=== PATIENT | female | born 1965 | race Caucasian/White ===

== ENCOUNTER 2017-03-25 02:55 | Emergency (ER) | payer OTHER ==
--- NOTE | 2017-03-25 02:57 | PDOC ---
History of Present Illness - General Chief Complaint: Pain, Acute Stated Complaint: ABDOMINAL PAIN Time Seen by Provider: 03/25/17 02:57 - History of Present Illness Initial Comments: 03/25/17 03:17 This 51-year-old woman with a history of overactive bladder but no other significant past medical issues presents with few hours history of nausea/ vomiting/diarrhea accompanied by abdominal discomfort. Patient ate dinner of vegetables at approximately 5:30 p.m. this evening. Approximately 3 hours later , she had the onset of nausea and mid abdominal discomfort. She subsequently had 2 episodes of vomiting (11 PM/12 midnight). Vomitus was yellowish material without coffee grounds/blood. Around the same time, she also had 2 episodes of loose stool (no blood/mucus ). No fever noted although the patient feels chilly. No known sick contacts. No recent travel. Patient states that she has a susceptibility to "stomach flu" and food poisoning. No history of peptic ulcer disease/GERD/gastritis. No history of gallbladder or pancreatic abnormalities. Past History - Past Medical History Allergies/Adverse Reactions: Allergies Allergy/AdvReac Type Severity Reaction Status Date / Time No Known Allergies Allergy Verified 03/25/17 02:56 Home Medications: Ambulatory Orders Ondansetron [Zofran Odt -] 4 mg SL TID PRN #10 od.tablet 03/25/17 Anemia: No Asthma: No Cancer: No Cardiac Disorders: No CVA: No COPD: No CHF: No Dementia: No Diabetes: No GI Disorders: No Disorders: No HTN: No Hypercholesterolemia: No Liver Disease: No Seizures: No Thyroid Disease: No - Surgical History Abdominal Surgery: Yes (TUBAL LIGATION) Appendectomy: No Cardiac Surgery: No Cholecystectomy: No Lung Surgery: No Neurologic Surgery: No Orthopedic Surgery: No - Suicide/Smoking/Psychosocial Hx Smoking History: Never smoked Have you smoked in the past 12 months: No Hx Alcohol Use: No Drug/Substance Use Hx: No Substance Use Type: None Hx Substance Use Treatment: No Review of Systems - Review of Systems Able to Perform ROS?: Yes Comments:: 12 point review of systems is negative except for what is noted in the history of present illness *Physical Exam - Physical Exam Comments: GENERAL: Adult female, alert and oriented 3, in mild distress secondary to abdominal discomfort/nausea HEAD: Normal with no signs of trauma. EYES: PERRLA, EOMI, sclera anicteric, conjunctiva clear. ENT: Ears normal, nares patent, oropharynx clear without exudates. Dry mucous membranes. NECK: Normal range of motion, supple without lymphadenopathy, JVD, or masses. LUNGS: Breath sounds equal, clear to auscultation bilaterally. No wheezes, and no crackles. HEART:Regular rate and rhythm, normal S1 and S2 without murmur, rub or gallop. ABDOMEN:.Hyperactive bowel sounds. Mild generalized tenderness, especially in mid abdominal. No guarding or rebound.No masses No distention. EXTREMITIES: Normal range of motion, no edema. No clubbing or cyanosis. No erythema, or tenderness. NEUROLOGICAL: Cranial nerves II through XII grossly intact. Normal speech. No focal neurological deficits. MUSCULOSKELETAL: Back non-tender to palpation, no CVA tenderness SKIN: Warm, Dry, normal turgor, no rashes or lesions noted. Progress Note - Progress Note Progress Note: Patient received 4 mg Zofran ODT with some improvement in her nausea. However, she continued to have abdominal cramping. Because patient appeared to be clinically dehydrated and has had fluid losses in vomitus/diarrhea, liter of normal saline was given. 30 mg Toradol IV given. Patient felt markedly improved after 1 L normal saline IV hydration and 30 mg Toradol IV. Patient will be discharged with instructions to maintain clear liquid diet and advance diet cautiously. She should not begin full diet for at least 2 days. Prescription for Zofran 4 mg ODT (#10) to be used as needed for nausea to 3 times a day was transmitted to her pharmacy. Patient should also consider using Imodium if diarrhea persists. She should return to the emergency room if she has persistent vomiting or develops severe abdominal pain/fever *DC/Admit/Observation/Transfer Diagnosis at time of Disposition: Acute gastroenteritis - Discharge Dispostion Disposition: HOME Condition at time of disposition: Stable - Prescriptions Prescriptions: Ondansetron [Zofran Odt -] 4 mg SL TID PRN #10 od.tablet PRN Reason: Nausea - Referrals - Patient Instructions Printed Discharge Instructions: DI for Viral Gastroenteritis -- Adult Additional Instructions: Clear liquids; advance diet cautiously Zofran 4 mg ODT as needed for nausea Imodium as needed for loose stools Follow-up with your general doctor within the next 2-3 days Return to ER if you have persistent vomiting , severe pain or high fever Print Language: PARAGUAYAN - Post Discharge Activity
[2017-03-25 03:02] VITALS: BP 122/72; PULSE 83; TEMP 98.1; BMI 24.7
[2017-03-25] MEDS ORDERED: ONDANSETRON *ODT* 4 MG TABLET SL ONE (03:14)
[2017-03-25] MEDS ORDERED: ONDANSETRON *ODT* 4 MG TABLET ONE (03:15)
[2017-03-25] MEDS ORDERED: LOPERAMIDE HCL 2 MG CAPSULE PO ONE (03:30)
[2017-03-25] MEDS ORDERED: LOPERAMIDE HCL 2 MG CAPSULE ONE (03:31)
[2017-03-25] MEDS ORDERED: KETOROLAC TROMETHAMINE 30 MG/1 ML VIAL IVPUSH ONE (03:33)
[2017-03-25] MEDS ORDERED: SODIUM CHLORIDE 1,000 ML IV STA (03:33)
[2017-03-25] MEDS ORDERED: KETOROLAC TROMETHAMINE 30 MG/1 ML VIAL ONE (03:39)
== END 2017-03-25 04:19 | disposition home or self-care (01) ==
LOC: FER 02:55
PROC: 3E0333Z Introduction of Anti-inflammatory into Peripheral Vein, Percutaneous Approach (ICD-10-PCS; principal; 2017-03-25)
PROC: 3E0337Z Introduction of Electrolytic and Water Balance Substance into Peripheral Vein, Percutaneous Approach (ICD-10-PCS; 2017-03-25)
DX: K52.9 Noninfective gastroenteritis and colitis, unspecified (principal)
CPT/HCPCS: 99281-25

== ENCOUNTER 2019-06-19 14:01 | Emergency (ER) | payer OTHER ==
--- NOTE | 2019-06-19 14:33 | PDOC ---
History of Present Illness - General Chief Complaint: Urinary Problem Stated Complaint: UTI History Source: Patient Exam Limitations: No Limitations - History of Present Illness Initial Comments: 06/19/19 14:31 53-year-old female no past medical history here today complaining of dysuria and urgency. Patient states symptoms started a few days ago has had an episode in the past over 1 year ago currently denies any fevers or chills no flank pain no nausea no vomiting states she had a burning sensation is a somewhat better this evening however it was worse in the a.m. denies any hematuria Past History - Past Medical History Allergies/Adverse Reactions: Allergies Allergy/AdvReac Type Severity Reaction Status Date / Time No Known Allergies Allergy Verified 06/19/19 14:01 Home Medications: Ambulatory Orders Cephalexin [Keflex] 500 mg PO TID #21 capsule 06/19/19 Mirabegron [Myrbetriq] 25 mg PO HS 06/19/19 Anemia: No Asthma: No Cancer: No Cardiac Disorders: No CVA: No COPD: No CHF: No Dementia: No Diabetes: No GI Disorders: No Disorders: No HTN: No Hypercholesterolemia: No Liver Disease: No Seizures: No Thyroid Disease: No - Surgical History Abdominal Surgery: Yes (TUBAL LIGATION) Appendectomy: No Cardiac Surgery: No Cholecystectomy: No Lung Surgery: No Neurologic Surgery: No Orthopedic Surgery: No - Psycho Social/Smoking Cessation Hx Smoking History: Never smoked Have you smoked in the past 12 months: No Hx Alcohol Use: No Drug/Substance Use Hx: No Substance Use Type: None Hx Substance Use Treatment: No Review of Systems - Review of Systems Constitutional: No: Chills, Fever Respiratory: No: Cough Cardiac (ROS): No: Chest Pain : Yes: Burning, Dysuria. No: Hematuria Musculoskeletal: No: Back Pain Neurological: No: Headache All Other Systems: Reviewed and Negative *Physical Exam - Physical Exam 06/19/19 14:32 Awake alert no acute distress lungs are clear bilaterally heart is regular 30 murmurs rubs or gallops abdomen is soft there is mild suprapubic tenderness no rebound no guarding no CVA tenderness remedies are warm well perfused patient is awake alert and oriented x3 skin is warm and dry no rash Medical Decision Making - Medical Decision Making 06/19/19 14:33 53-year-old female history of prior UTIs here today complaining of dysuria likely UTI plan UA urine culture will likely treat based on patient's symptoms outpatient follow-up Discharge - Discharge Information Problems reviewed: Yes Clinical Impression/Diagnosis: UTI (urinary tract infection) Condition: Good Disposition: HOME - Admission No - Additional Discharge Information Prescriptions: Cephalexin [Keflex] 500 mg PO TID #21 capsule - Follow up/Referral Referrals: Gonzales Whitlock MD [Staff Physician] - - Patient Discharge Instructions Patient Printed Discharge Instructions: Urinary Tract Infection Additional Instructions: Your urine is positive for infection. You should take Keflex 500 mg 3 times a day for 1 week. You should also follow-up with urologist See referral for Dr. Villalobos, as you do have a little bit of blood in your urine this is likely due to infection however it should be followed to be sure that it clears when the infection is treated. Return for any fevers chills vomiting or any concerns. You should also follow-up with your primary care doctor call to thien green an appointment - Post Discharge Activity
[2019-06-19 14:35] VITALS: BP 121/63; PULSE 77; TEMP 98.2; BMI 24.7
[2019-06-19 14:58] LABS: EPITHELIAL CELLS FEW /hpf
[2019-06-19] MEDS ORDERED: CEPHALEXIN MONOHYDRATE 500 MG CAPSULE (UD) PO ONE (15:07)
[2019-06-19] MEDS ORDERED: CEPHALEXIN MONOHYDRATE 500 MG CAPSULE (UD) ONE (15:26)
== END 2019-06-19 15:32 | disposition home or self-care (01) ==
LOC: FER 14:01
DX: N39.0 Urinary tract infection, site not specified (principal)
CPT/HCPCS: 81003; 81015; 87086; 87186; 99283-25

== ENCOUNTER 2019-10-15 09:50 | Emergency (ER) | payer OTHER ==
[2019-10-15 10:04] VITALS: BP 113/67; PULSE 98; BMI 25.8
[2019-10-15] MEDS ORDERED: ACETAMINOPHEN 1000 MG/100 ML VIAL (NON FORMULARY) IVPB ONE (10:15)
[2019-10-15] MEDS ORDERED: SODIUM CHLORIDE 0.9% 1000 ML INFUS.BAG IV ONE (10:15)
[2019-10-15] MEDS ORDERED: ACETAMINOPHEN INJECTION 100 ML IVPB ONE (10:24)
--- NOTE | 2019-10-15 10:40 | PDOC ---
History of Present Illness - General Chief Complaint: Weakness Stated Complaint: WEAK, "HEAD PRESSURE", JOINT PAINS Time Seen by Provider: 10/15/19 09:53 History Source: Patient Exam Limitations: No Limitations - History of Present Illness Initial Comments: 10/15/19 10:36 53-year-old female history of polyarthritis of uncertain etiology is followed by line up examiner here today complaining of generalized body aches. Patient states she has had off-and-on body aches however over the last few days she is noticed whole body aches in her muscles thighs back is also complaining of a headache. Did have some loose watery stool in the last few days denies any nausea or vomiting no fevers no chills no head trauma has been taking Celebrex twice daily for her symptoms. She also noticed a rash in her stomach for which she was started on antifungal cream for ringworm by her PCP. Denies any sick contacts no fevers no chills no cough no shortness of breath no urinary complaints overall headache is improved but her body aches have persisted Past History - Medical History Allergies/Adverse Reactions: Allergies Allergy/AdvReac Type Severity Reaction Status Date / Time No Known Allergies Allergy Verified 10/15/19 09:52 Home Medications: Ambulatory Orders Mirabegron [Myrbetriq] 25 mg PO HS 06/19/19 Celecoxib 200 mg PO BID 10/15/19 Clotrimazole/Betamethasone Dip [Clotrimazole-Betamethasone Crm] 1 applic TP BID 10/15/19 Anemia: No Asthma: No Cancer: No Cardiac Disorders: No CVA: No COPD: No CHF: No Dementia: No Diabetes: No GI Disorders: No Disorders: Yes (overactive bladder) HTN: No Hypercholesterolemia: No Liver Disease: No Seizures: No Thyroid Disease: No - Surgical History Abdominal Surgery: Yes (TUBAL LIGATION) Appendectomy: No Cardiac Surgery: No Cholecystectomy: No Lung Surgery: No Neurologic Surgery: No Orthopedic Surgery: No - Immunization History Td Vaccination: No - Psycho-Social/Smoking History Smoking History: Never smoked Have you smoked in the past 12 months: No Information on smoking cessation initiated: No - Substance Abuse Hx (Audit-C & DAST Scrn) How often the patient has a drink containing alcohol: Never Score: In Men: 4 or > Positive; In Women: 3 or > Positive: 0 Screen Result (Pos requires Nsg. Audit-10AR): Negative In the last yr the pt used illegal drug/Rx for NonMed reason: No Score: Yes response is considered Positive: 0 Screen Result (Positive result requires Nsg. DAST-10): Negative Review of Systems - Review of Systems Constitutional: No: Chills, Fever HEENTM: No: Eye Pain Respiratory: No: Cough, Shortness of Breath Cardiac (ROS): No: Chest Pain ABD/GI: Yes: Diarrhea, Poor Appetite. No: Nausea : No: Burning, Dysuria, Discharge Musculoskeletal: Yes: Joint Pain, Muscle Pain, Muscle Weakness Integumentary: Yes: Rash Neurological: Yes: Headache. No: Numbness, Paresthesia, Tremors, Weakness All Other Systems: Reviewed and Negative *Physical Exam - Vital Signs Last Vital Signs Temp Pulse Resp BP Pulse Ox 99.9 F H 98 H 18 113/67 98 10/15/19 09:50 10/15/19 09:50 10/15/19 09:50 10/15/19 09:50 10/15/19 09:50 - Physical Exam 10/15/19 10:37 Awake alert no acute distress lungs are clear bilaterally heart is regular with no murmurs rubs or gallops abdomen soft nontender skin is warm and dry there is noted to be a small circular scaly rash with hyperpigmentation on the left mid abdomen approximately 2 x 2 inches in size no other lesions or rashes noted. Extremities are warm and well-perfused neurologically patient is awake alert and oriented x3 ED Treatment Course - LABORATORY CBC & Chemistry Diagram: 10/15/19 10:30 10/15/19 10:30 - Medications Given in the ED: ED Medications Discontinued Medications Generic Name Dose Route Start Last Admin Trade Name Freq PRN Reason Stop Dose Admin Acetaminophen 1,000 mg 10/15/19 10:15 10/15/19 10:30 Ofirmev Injection - IVPB 10/15/19 10:16 1,000 mg ONCE ONE Administration Sodium Chloride 1,000 ml 10/15/19 10:15 10/15/19 10:30 Normal Saline - IV 10/15/19 10:16 1,000 ml ONCE ONE Administration Medical Decision Making - Medical Decision Making 10/15/19 10:38 53-year-old female with unknown arthritis here today with general myalgias headaches which has resolved and fatigue. Differential includes myositis or rhabdo of uncertain etiology anemia electrolyte abnormality hypercalcemia or hypokalemia possible underlying autoimmune inflammatory disorder and COVID considered plan COVID swab IV fluids Tylenol and basic labs including total CK patient will likely be discharged home if labs are unremarkable with symptomatic treatment follow-up with her line up examiner 10/15/19 11:48 pt feels improved. labs normal. will dc home told to fu with line up examiner Discharge - Discharge Information Problems reviewed: Yes Clinical Impression/Diagnosis: Myalgia Condition: Stable Disposition: HOME - Admission No - Follow up/Referral Referrals: Patrick Turner MD [Primary Care Provider] - - Patient Discharge Instructions Patient Printed Discharge Instructions: [facility]Coronavirus Instructions, [facility] COVID-19 Isolation Protocol, Tension Headache Additional Instructions: you should follow up with your primary care doctor and your line up examiner. call to schedule. you labs today are normal. you were given tylenol for your pain. be sure to drink plenty of fluids, get plenty of rest. you can take tylenol 500 mg every 6 hrs as needed for your pain. return for any problems or concerns. your covid test was sent, should return in 48 hours. you will be called if it is positive. - Post Discharge Activity
[2019-10-15 10:44] LABS: BASO % 0.6 % (0-2.0); EOS % 0.9 % (0-4.5)
[2019-10-15 10:50] LABS: HEMATOCRIT 34.5 % (32.4-45.2); HEMOGLOBIN 11.5 GM/dl (10.7-15.3); LYMPH % 8.2 % (8-40); MCHC 33.2 g/dl (32.0-36.0); MEAN CELL VOLUME 87.4 fl (80-96); MEAN PLT VOLUME 7.8 fl (7.5-11.1); MONO % 5.7 % (3.8-10.2); NEUT % 84.6 % (42.8-82.8); PLATELET COUNT 245 K/MM3 (134-434); RBC 3.95 M/mm3 (3.60-5.2); WHITE BLOOD COUNT 8.5 K/mm3 (4.0-10.8)
[2019-10-15 10:51] LABS: ALBUMIN 3.4 g/dl (3.4-5.0); BILIRUBIN,TOTAL 0.7 mg/dl (0.2-1); CALCIUM 8.4 mg/dl (8.5-10); CREATININE 0.7 mg/dl (0.55-1.3); POTASSIUM 4.2 mmol/L (3.5-5.1); TOT PROT 6.4 g/dl (6.4-8.2)
[2019-10-15 12:03] VITALS: TEMP 98.6
== END 2019-10-15 12:00 | disposition home or self-care (01) ==
LOC: FER 09:50
PROC: 3E033GC Introduction of Other Therapeutic Substance into Peripheral Vein, Percutaneous Approach (ICD-10-PCS; principal; 2019-10-15)
DX: M79.10 Myalgia, unspecified site (principal)
CPT/HCPCS: 36415; 80053; 82550; 85025; 99284-25; J0131; U0003

== ENCOUNTER 2021-10-10 04:15 | Day surgery (SDC) | payer OTHER ==
[2021-10-04 16:05] VITALS: BMI 25.3
[2021-10-10] MEDS ORDERED: LIDOCAINE HCL 2% 100 MG/5 ML DISP.SYRIN ONE (08:56)
[2021-10-10] MEDS ORDERED: DEXAMETHASONE SOD PHOSPHATE 4 MG/1 ML VIAL ONE (08:56)
[2021-10-10] MEDS ORDERED: KETOROLAC TROMETHAMINE 30 MG/1 ML VIAL ONE (08:56)
[2021-10-10] MEDS ORDERED: ONDANSETRON 4 MG/2 ML VIAL ONE (08:56)
[2021-10-10] MEDS ORDERED: PROPOFOL 20 ML ONE ×3 (08:57→09:27)
[2021-10-10] MEDS ORDERED: MIDAZOLAM HCL 2 MG/2 ML SINGLE DOSE VIAL ONE (08:58)
[2021-10-10 09:09] LABS: EPI CELLS 6 /uL (0-25.1); HYALINE CASTS 2 /uL (0-3.1); PH,URINE 5.5 (5.0-8.0); URINE APPEARANCE CLOUDY; URINE BACTERIA >9,000 /uL (0-1359); URINE BILIRUBIN NEGATIVE (NEGATIVE); URINE COLOR YELLOW; URINE GLUCOSE (UA) NEGATIVE (NEGATIVE); URINE KETONE NEGATIVE (NEGATIVE); URINE LEUK ESTERASE 1+ (NEGATIVE); URINE NITRITE POSITIVE (NEGATIVE); URINE PROTEIN NEGATIVE (NEGATIVE); URINE RBC 24 /uL (0-23.9); URINE UROBILINOGEN 0.2 mg/dL (0.2-1.0); URINE WBC 154 /uL (0-25.8)
[2021-10-10 09:09] LABS: INR 0.93 (0.83-1.09); PROTHROMBIN TIME (PATIENT) 10.7 SEC (9.7-13.0)
[2021-10-10 09:12] LABS: ACTIVATED PTT 33.2 SECONDS (25.2-36.5)
[2021-10-10] MEDS ORDERED: LIDOCAINE HCL 1%, 10 MG/ML (20ML VIAL) ONE (09:14)
[2021-10-10] MEDS ORDERED: ceFAZolin SODIUM 1 GM VIAL ONE ×2 (09:33)
[2021-10-10] MEDS ORDERED: ceFAZolin SODIUM 1 GM VIAL IVPB ONE (09:40)
[2021-10-10] MEDS ORDERED: LIDOCAINE HCL 1%, 10 MG/ML (20ML VIAL) INF ONE ×2 (09:48)
[2021-10-10] MEDS ORDERED: BUPIVACAINE HCL/PF 0.5% (5MG/ML) 10 ML VIAL IJ ONE ×2 (09:48)
[2021-10-10] MEDS ORDERED: ONDANSETRON 4 MG/2 ML VIAL IVPUSH PRN (10:26)
[2021-10-10] MEDS ORDERED: oxyCODONE HCL 5 MG TABLET PO PRN ×2 (10:26)
[2021-10-10] MEDS ORDERED: PROMETHAZINE HCL 25 MG/1 ML VIAL IVPUSH PRN (10:26)
[2021-10-10] MEDS ORDERED: ACETAMINOPHEN 325 MG TABLET (FP) PO PRN (10:26)
[2021-10-10] MEDS ORDERED: LACTATED RINGERS SOLUTION 1,000 ML IV SCH (10:30)
[2021-10-10 13:12] VITALS: BP 120/70; PULSE 72; TEMP 98
== END 2021-10-10 12:50 | disposition home or self-care (01) ==
LOC: JASU-SURG 04:15
PROVIDERS: ATTEND Orthopaedic Surgery
PROC: 0LB50ZZ Excision of Right Lower Arm and Wrist Tendon, Open Approach (ICD-10-PCS; 2021-10-10)
PROC: 0LB50ZZ Excision of Right Lower Arm and Wrist Tendon, Open Approach (ICD-10-PCS; 2021-10-10)
PROC: 0LB50ZZ Excision of Right Lower Arm and Wrist Tendon, Open Approach (ICD-10-PCS; 2021-10-10)
PROC: 0LB50ZZ Excision of Right Lower Arm and Wrist Tendon, Open Approach (ICD-10-PCS; 2021-10-10)
PROC: 0LB50ZZ Excision of Right Lower Arm and Wrist Tendon, Open Approach (ICD-10-PCS; 2021-10-10)
PROC: 0LB50ZZ Excision of Right Lower Arm and Wrist Tendon, Open Approach (ICD-10-PCS; 2021-10-10)
PROC: 0LB50ZZ Excision of Right Lower Arm and Wrist Tendon, Open Approach (ICD-10-PCS; 2021-10-10)
PROC: 0LB50ZZ Excision of Right Lower Arm and Wrist Tendon, Open Approach (ICD-10-PCS; 2021-10-10)
PROC: 0JBJ0ZZ Excision of Right Hand Subcutaneous Tissue and Fascia, Open Approach (ICD-10-PCS; 2021-10-10)
PROC: 01N50ZZ Release Median Nerve, Open Approach (ICD-10-PCS; principal; 2021-10-10 10:15)
PROC: 0LB50ZZ Excision of Right Lower Arm and Wrist Tendon, Open Approach (ICD-10-PCS; 2021-10-10 10:15)
DX: G56.01 Carpal tunnel syndrome, right upper limb (principal); D17.21 Benign lipomatous neoplasm of skin and subcutaneous tissue of right arm; M65.831 Other synovitis and tenosynovitis, right forearm
CPT/HCPCS: 36415; 81003; 85610; 85730; 88304-TC; 88305-TC

== ENCOUNTER 2023-05-12 04:39 | Day surgery (SDC) | payer OTHER ==
[2023-05-08 08:33] VITALS: BMI 25.1
[2023-05-12] MEDS ORDERED: MIDAZOLAM HCL 2 MG/2 ML SINGLE DOSE VIAL ONE (07:48)
[2023-05-12] MEDS ORDERED: PROPOFOL 20 ML ONE (07:51)
[2023-05-12] MEDS ORDERED: SUCCINYLCHOLINE CHLORIDE 200 MG/10 ML SYRINGE ONE (07:51)
[2023-05-12] MEDS ORDERED: ceFAZolin SODIUM 1 GM VIAL IVPB ONE (07:54)
[2023-05-12] MEDS ORDERED: ONABOTULINUMTOXINA 200 UNIT/VIAL VIAL IM ONE (08:05)
[2023-05-12 10:41] VITALS: TEMP 98.5
[2023-05-12 10:44] VITALS: BP 128/78; PULSE 68; RESP 20
[2023-05-12] MEDS ORDERED: LIDOCAINE 1%/EPI 1:100000 (20 ML MULTI DOSE VIAL) ONE (11:27)
== END 2023-05-12 10:42 | disposition home or self-care (01) ==
LOC: JASU-SURG 04:39
PROVIDERS: ATTEND Urology
PROC: 3E0K8GC Introduction of Other Therapeutic Substance into Genitourinary Tract, Via Natural or Artificial Opening Endoscopic (ICD-10-PCS; principal; 2023-05-12 08:00)
DX: N31.9 Neuromuscular dysfunction of bladder, unspecified (principal); N31.8 Other neuromuscular dysfunction of bladder
CPT/HCPCS: J0585

== ENCOUNTER 2024-07-10 19:09 | Inpatient (IN) | payer OTHER ==
[2024-07-10] MEDS ORDERED: FAMOTIDINE 20 MG/50 ML IVPB 20 MG/50 ML MG IVPB ONE (19:39)
[2024-07-10] MEDS ORDERED: ACETAMINOPHEN INJECTION 100 ML ONE (19:40)
[2024-07-10] MEDS ORDERED: MAG HYDROX/AL HYDROX/SIMETH 30 ML UNIT-DOSE CUP ONE (19:40)
[2024-07-10] MEDS: LACTATED RINGERS SOLUTION 1000 ML INFUS.BAG IV ONE (19:50)
[2024-07-10] MEDS: FAMOTIDINE 20 MG/50 ML IVPB 20 MG/50 ML MG IVPB ONE (19:55)
[2024-07-10] MEDS: MAG HYDROX/AL HYDROX/SIMETH 30 ML UNIT-DOSE CUP PO ONE (20:00)
[2024-07-10] MEDS: ACETAMINOPHEN 1000 MG/100 ML BAG IVPB ONE (20:05)
[2024-07-10 20:06] LABS: ABSOLUTE IMMATURE GRANULOCYTES 0.03 x10^3/uL (0.0-0.031); BASOPHILS # 0.05 x10^3/uL (0.01-0.08); EOSINOPHIL % 2.5 % (0.7-5.8); EOSINOPHILS # 0.37 x10^3/uL (0.04-0.36); HEMATOCRIT 42.4 % (34.1-44.9); HEMOGLOBIN 14.1 g/dL (11.2-15.7); MCHC 33.3 g/dl (32.2-35.5); MEAN CELL VOLUME 92.2 fl (79.4-94.8); MEAN PLT VOLUME 9.6 fl (9.4-12.3); MONOCYTE # 0.53 x10^3/uL (0.24-0.86); MONOCYTE % 3.6 % (4.7-12.5); PLATELET COUNT 285 x10^3/uL (182-369); RDW 12.5 % (12.3-16.6)
[2024-07-10 20:29] LABS: ALBUMIN 4.6 g/dl (3.4-5.0); BILIRUBIN,TOTAL 0.3 mg/dl (0.2-1); CALCIUM 10.2 mg/dl (8.5-10.1); CREATININE 0.9 mg/dl (0.6-1.3); MAGNESIUM 2.3 mg/dL (1.8-2.4); POTASSIUM 3.9 mmol/L (3.5-5.1); TOT PROT 7.5 g/dl (6.4-8.2)
[2024-07-10] MEDS ORDERED: morphine SULFATE 4 MG/ML VIAL ONE (21:51)
[2024-07-10] MEDS: morphine CARPU-JECT 4 MG/1 ML DISP.SYRIN IVPUSH ONE (21:59)
[2024-07-10 22:10] LABS: EPITHELIAL CELLS 0-5 /hpf
[2024-07-11] MEDS: DEXTROSE 5%-NORMAL SALINE 1,000 ML IV SCH (00:46)
[2024-07-11] MEDS: ACETAMINOPHEN 1000 MG/100 ML BAG IVPB PRN (06:39)
[2024-07-11 07:38] VITALS: BMI 27.3
[2024-07-11 08:22] LABS: ABSOLUTE IMMATURE GRANULOCYTES 0.03 x10^3/uL (0.0-0.031); BASOPHILS # 0.07 x10^3/uL (0.01-0.08); EOSINOPHIL % 4.4 % (0.7-5.8); EOSINOPHILS # 0.35 x10^3/uL (0.04-0.36); HEMATOCRIT 38.5 % (34.1-44.9); HEMOGLOBIN 12.4 g/dL (11.2-15.7); MCHC 32.2 g/dl (32.2-35.5); MEAN CELL VOLUME 91.4 fl (79.4-94.8); MEAN PLT VOLUME 9.9 fl (9.4-12.3); MONOCYTE # 0.44 x10^3/uL (0.24-0.86); MONOCYTE % 5.5 % (4.7-12.5); PLATELET COUNT 271 x10^3/uL (182-369); RDW 12.8 % (12.3-16.6)
[2024-07-11 08:36] LABS: POTASSIUM 4.5 mmol/L (3.5-5.1)
[2024-07-11 08:51] LABS: BLOOD UREA NITROGEN 15.4 mg/dL (7-18); CALCIUM 8.9 mg/dL (8.5-10.1); CREATININE 0.6 mg/dL (0.55-1.3)
[2024-07-11] MEDS: PANTOPRAZOLE SODIUM 40 MG VIAL IVPUSH SCH (10:51)
[2024-07-11 20:51] VITALS: RESP 18
[2024-07-12 08:09] LABS: ABSOLUTE IMMATURE GRANULOCYTES 0.02 x10^3/uL (0.0-0.031); BASOPHILS # 0.04 x10^3/uL (0.01-0.08); EOSINOPHIL % 5.8 % (0.7-5.8); EOSINOPHILS # 0.34 x10^3/uL (0.04-0.36); HEMATOCRIT 40.6 % (34.1-44.9); HEMOGLOBIN 13.2 g/dL (11.2-15.7); MCHC 32.5 g/dl (32.2-35.5); MEAN CELL VOLUME 92.1 fl (79.4-94.8); MEAN PLT VOLUME 9.4 fl (9.4-12.3); MONOCYTE # 0.31 x10^3/uL (0.24-0.86); MONOCYTE % 5.3 % (4.7-12.5); PLATELET COUNT 290 x10^3/uL (182-369); RDW 12.9 % (12.3-16.6)
[2024-07-12 08:39] LABS: POTASSIUM 4.4 mmol/L (3.5-5.1)
[2024-07-12 08:49] LABS: CALCIUM 8.8 mg/dL (8.5-10.1)
[2024-07-12 08:50] LABS: ALBUMIN 3.5 g/dl (3.4-5.0); MAGNESIUM 2.4 mg/dL (1.8-2.4)
[2024-07-12 08:53] LABS: CREATININE 0.6 mg/dL (0.55-1.3)
[2024-07-12 08:55] LABS: BILIRUBIN,TOTAL 0.4 mg/dL (0.2-1); TOT PROT 6.7 g/dl (6.4-8.2)
[2024-07-13 06:32] VITALS: PULSE 64
[2024-07-13 08:40] VITALS: BP 114/66; TEMP 97.5
== END 2024-07-13 18:45 | disposition left against medical advice (07) | DRG 390 ==
LOC: FER 19:09 → J6S 07-11 05:00
PROVIDERS: ADMIT Internal Medicine; ATTEND Internal Medicine
DX: K56.600 Partial intestinal obstruction, unspecified as to cause (principal); R10.9 Unspecified abdominal pain; E78.5 Hyperlipidemia, unspecified; K21.9 Gastro-esophageal reflux disease without esophagitis
CPT/HCPCS: 36415; 71045-TC-FY; 74019-TC-FY; 74177-TC; 80048; 80053; 81003; 81015; 83690; 83735; 84484; 85025; 87086; 93005; 99285-25; J0131; Q9967